=== PATIENT | male | born 1960 | race Caucasian/White ===

== ENCOUNTER → 2018-08-03 14:37 | Outpatient (CLI) | payer BC, SELFPAY ==
--- NOTE | 2018-08-03 14:52 | RAD_ITS ---
STUDY: X-RAY - LUMBAR SPINE REASON FOR EXAM: Male, 57 years old. Low back pain. TECHNIQUE: 3 view(s) of the lumbar spine were obtained. COMPARISON: None FINDINGS: Normal lumbar lordosis. There is no substantial scoliosis. There is a normal alignment of the vertebrae. Normal vertebral bodies and endplates. Normal disc space heights. There is no demonstrated fracture. The soft tissue structures are unremarkable. RAD/Lumbar Spine 2 or 3 Views IMPRESSION: Normal x-ray examination of the lumbar spine. Electronically Signed: Yong Michael MD at 23:47 EDT , Service support ,
== END ==
PROVIDERS: Referring Provider Anesthesiology Pain Medicine; Visit Provider Anesthesiology Pain Medicine
DX: M54.5 Low back pain (principal)
CPT/HCPCS: 72100

== ENCOUNTER 2021-06-08 12:13 | Outpatient (CLI) | payer BC, SELFPAY | END 2021-06-08 23:59 | disposition short-term general hospital (02) | LOC: EN 12:14 | PROVIDERS: Visit Provider Surgery | DX: Z00.00 Encounter for general adult medical examination without abnormal findings (principal) ==

== ENCOUNTER 2023-12-07 14:12 | Emergency (ER) | payer OTHER, SELFPAY ==
[2023-12-07 14:12] VITALS: BP 169/90; PULSE 92; RESP 22; TEMP 36.6; O2SAT 100
--- NOTE | 2023-12-07 14:47 | CT_ITS ---
STUDY: CT LUMBAR SPINE WITHOUT CONTRAST REASON FOR EXAM: Male, 62 years old. back pain TECHNIQUE: The patient was scanned in a multi detector CT scanner. High resolution transaxial imaging was performed. Images were obtained from T12 to S1. Sagittal and coronal images were reconstructed. Individualized dose optimization techniques were used for this CT. COMPARISON: None FINDINGS: Normal lumbar lordosis. There is no substantial scoliosis. Normal vertebrae of the lumbar spine. L1-2: There is bilateral facet arthropathy. Loss of intervertebral disc height. There is endplate spondylosis of the vertebral body. Unremarkable central canal. Unremarkable intervertebral neuroforamina. L2-3: There is bilateral facet arthropathy. Loss of intervertebral disc height. There is endplate spondylosis of the vertebral body. Unremarkable central canal. Unremarkable intervertebral neuroforamina. L3-4: There is bilateral facet arthropathy. Loss of intervertebral disc height. There is endplate spondylosis of the vertebral body. Unremarkable central canal. Unremarkable intervertebral neuroforamina. L4-5: There is bilateral facet arthropathy. Loss of intervertebral disc height. There is endplate spondylosis of the vertebral body. Unremarkable central canal. Unremarkable intervertebral neuroforamina. L5-S1: There is bilateral facet arthropathy. Loss of intervertebral disc height. There is endplate spondylosis of the vertebral body. Unremarkable central canal. Mild blurring of the bilateral intervertebral neuroforamina. Normal visualized paraspinous soft tissue structures. CT/Spine Lumbar without Contrast IMPRESSION: (NOT LISTED IN ORDER OF SIGNIFICANCE) Multilevel degenerative changes, as described above. Electronically Signed: Lior Contreras MD at 15:47 EDT ,
--- NOTE | 2023-12-07 14:49 | EDS_ITS ---
HPI <PEDRO PABLO Morelos - Last Filed: 12/07/23 16:15> History of Present Illness Chief Complaint: Back Narrative Narrative: Patient is 62-year-old male with no significant medical history who presents to the emergency department with acute on chronic back pain. Pay states he used to see pain management however this has been several years ago. Patient dates he has a very demanding job where he has to do a lot of heavy lifting. Last evening, he bent over to pick something up, had severe pain to his lower lumbar spine ended up laying on the ground. It took him several hours to get back up, he then laid back down. Today the pain was worse, he was able to call a neighbor to get him here to the emergency department. He denies any weakness to his lower extremities, he states the pain is staying in his lower back. He denies any radiation to his legs, denies any bowel or bladder incontinence, denies any fever or chills. Denies any history of IV drug abuse. PFSH <PEDRO PABLO Morelos - Last Filed: 12/07/23 16:15> [facility] Medical History (Updated 12/07/23 @ 16:12 by PEDRO PABLO Morelos) Wears glasses Alcohol use Marijuana use Arthritis Restless legs Back pain Gastric reflux Smoker History of pain when walking Home Medications ?Medication ?Instructions ?Recorded ?Last Taken ?Type omeprazole 20 mg capsule,delayed 40 mg PO DAILY 03/22/21 Unknown History release sucralfate 1 gram tablet (Carafate) 1 g PO 4X/DAY 03/22/21 Unknown History cyclobenzaprine 10 mg tablet 10 mg PO TID PRN Muscle Spasm #20 12/07/23 Unknown Rx TABLETS naproxen 500 mg tablet (Naprosyn) 500 mg PO BID PRN pain #20 tabs 12/07/23 Unknown Rx oxycodone-acetaminophen 5 mg-325 1 tab PO Q8H PRN pain 3 days #10 12/07/23 Unknown Rx mg tablet (Percocet) tabs Allergy/AdvReac Type Severity Reaction Status Date / Time No Known Allergies Allergy Verified 12/07/23 14:12 Surgical History (Updated 03/22/21 @ 14:34 by Tram Vargas) Hx of eye surgery Hx of hernia repair Social History Smoking Status: Current every day smoker tobacco type: cigarettes ROS <Joe PachecoNERY rader-C - Last Filed: 12/07/23 16:15> ROS ED ROS Narrative Constitutional: Negative for fever, chills, weight loss, weakness Eyes: Negative for vision loss, vision change, double vision ENT: Negative for any sore throat, ear pain, congestion Cardiovascular: Negative for any chest pain, tightness, palpitations Respiratory: Negative for any cough, sputum production, hemoptysis, dyspnea, dyspnea on exertion, orthopnea Gastrointestinal: Negative for any abdominal pain, nausea, vomiting, diarrhea, constipation, blood in stool, blood in vomit : Negative for any urinary frequency, dysuria, retention, blood in urine Muscle skeletal: Negative for any neck pain. Positive for lower back pain Neurological: Negative for any headache, syncope, dizziness Skin: Negative for any rashes, itching, abrasions, lacerations Psychiatric: Negative for any depression, anxiety, stress, suicidal ideation, homicidal ideation Hematologic: Negative for any excessive bruising, easy bleeding EXAM <PEDRO PABLO Morelos - Last Filed: 12/07/23 16:15> Physical Exam Narrative Exam Narrative: Vital signs reviewed. HEET: Head normocephalic atraumatic, TMs clear bilaterally. Posterior pharynx is clear, moist mucous membranes. Nares clear bilaterally. Neck: Supple with no lymphadenopathy or tenderness. No signs of meningismus. Cardiac: Regular rate and rhythm no murmurs gallops or rubs, equal peripheral pulses bilaterally. Respiratory: Lungs clear to auscultation bilaterally. No chest tenderness. Abdomen: Soft, nontender, nondistended. No abdominal bruit or pulsatile masses. No hepatosplenomegaly Extremities: No peripheral edema, no signs of gross trauma or deformity. Active full range of motion of all extremities. Equal strength bilateral lower extremities Neuro: Cranial nerves II through XII intact, no focal neurological deficits. Skin: Clean dry and intact with no rash, purpura, petechiae, vesicles or pustules. Backs/flank: No CVA tenderness, no midline spinal tenderness, no deformity. Patient has pain across his lower lumbar spine around L4-L5. No radiation. No significant midline spinal tenderness. Psych: Normal mood and affect. No SI, HI or acute psychosis. Const Vital Signs: 12/07/23 14:12 12/07/23 16:12 12/07/23 16:31 Temperature 97.8 F 98 F Temperature Source Temporal Pulse Rate 92 74 74 Respiratory Rate 22 H 18 18 Blood Pressure 169/90 H 155/76 H 155/76 H Blood Pressure Mean 116 102 102 Pulse Ox 100 96 96 Oxygen Delivery Method Room Air Room Air Positive well nourished and well developed General Appearance ED: well developed <Dr. John Rodrigez DO - Last Filed: 12/07/23 17:01> Physical Exam Const Vital Signs: 12/07/23 14:12 12/07/23 16:12 12/07/23 16:31 Temperature 97.8 F 98 F Temperature Source Temporal Pulse Rate 92 74 74 Respiratory Rate 22 H 18 18 Blood Pressure 169/90 H 155/76 H 155/76 H Blood Pressure Mean 116 102 102 Pulse Ox 100 96 96 Oxygen Delivery Method Room Air Room Air MDM <AKILAH MorelosC - Last Filed: 12/07/23 16:15> MDM Radiography Diagnostic Testing: Clinical Impression(s) from Imaging Studies Lumbar Spine CT 12/07/23 14:47 IMPRESSION: (NOT LISTED IN ORDER OF SIGNIFICANCE) Multilevel degenerative changes, as described above. Electronically Signed: Lior Contreras MD at 15:47 EDT , Treatment and Re-Evaluation :: Differential diagnosis includes however is not limited to: Cauda equina, spinal abscess, lumbar strain, compression fracture, acute on chronic back pain Patient appears to be in no obvious distress, vital signs are stable. Patient presents to the emergency department with complaints of pain to the lower back after bending to pick something up yesterday. Patient will receive CT scan of the lower lumbar spine, IV will be placed, patient be given IV morphine, Toradol, Zofran. Patient will be reevaluated. All radiologic examinations were read, reviewed by the emergency department attending. From these reads, a plan of care will be put in place. Reevaluation, the patient did feel better. Patient CT scan of lumbar spine shows multilevel degenerative changes, no acute process. Patient at this time will be discharged home. We given a work note for the next 3 to 4 days. Patient replaced on Percocet, Flexeril, naproxen. Instructed to return for any worsening symptoms. He will be given a referral to primary care as well as to orthospine. Instructed return for any worsening symptoms. Stable for discharge. <Dr. John Rodrigez, DO - Last Filed: 12/07/23 17:01> [facility] History & Record Review Discussion w/independent historian: Patient Radiography Diagnostic Testing: Clinical Impression(s) from Imaging Studies Lumbar Spine CT 12/07/23 14:47 IMPRESSION: (NOT LISTED IN ORDER OF SIGNIFICANCE) Multilevel degenerative changes, as described above. Electronically Signed: Lior Contreras MD at 15:47 EDT , Treatment and Re-Evaluation :: Differential diagnosis includes however is not limited to: Cauda equina, spinal abscess, lumbar strain, compression fracture, acute on chronic back pain Patient appears to be in no obvious distress, vital signs are stable. Patient presents to the emergency department with complaints of pain to the lower back after bending to pick something up yesterday. Patient will receive CT scan of the lower lumbar spine, IV will be placed, patient be given IV morphine, Toradol, Zofran. Patient will be reevaluated. All radiologic examinations were read, reviewed by the emergency department attending. From these reads, a plan of care will be put in place. Reevaluation, the patient did feel better. Patient CT scan of lumbar spine shows multilevel degenerative changes, no acute process. Patient at this time will be discharged home. We given a work note for the next 3 to 4 days. Melba ient replaced on Percocet, Flexeril, naproxen. Instructed to return for any worsening symptoms. He will be given a referral to primary care as well as to orthospine. Instructed return for any worsening symptoms. Stable for discharge. I have personally performed a face to face assessment of the patient and have reviewed the MANAS Note. I performed a substantive portion of the visit including all aspects of the following. My ospina findings include: History is 62-year-old male with a history of intermittent back problems. States he used to be in pain management with Dr. Neal. He states that last night he bent over to pick something up and when he started to come back up got a severe pain in the low back. Did not radiate into the legs. He states it felt like a tightening sensation. He notes no difficulty with bowel or bladder control. No fevers. No numbness of the legs or muscle weakness. He states he has had episodes like this in the past that have taken upwards of a week to carlitos fitzpatrick. Exam is mild tenderness to palpation just to the right of the lumbar paraspinal musculature around L4-L5. There is no SI joint tenderness. No rashes. Neurovascularly he is intact. He gets pain on the right side when I try to flex his right hip. Medical Decison Making CT scan that was ordered by this practitioner was reviewed. Mild degenerative changes please see radiologist read. Patient was treated with morphine Zofran and Toradol. I believe this to be muscular spasm in nature. Unguinal recommend primary follow-up unfortunately does not have 1 so may be difficult to get early follow-up. We can write for some pain and muscle relaxant medications. Discharge Plan Triage Chief Complaint: Back ED Midlevel Provider: Joe Nevarez ED Provider: John Rodrigez Dx/Rx/DC Orders Clinical Impression: Acute lumbar myofascial strain Instructions: Understanding Lumbosacral Strain Prescriptions: New oxycodone-acetaminophen [Percocet] 5-325 mg tablet 1 tab PO Q8H PRN (Reason: pain) 3 Days Qty: 10 0RF naproxen [Naprosyn] 500 mg tablet 500 mg PO BID PRN (Reason: pain) Qty: 20 0RF cyclobenzaprine 10 mg tablet 10 mg PO TID PRN (Reason: Muscle Spasm) Qty: 20 0RF No Action sucralfate [Carafate] 1 gram Tablet 1 g PO 4X/DAY omeprazole 20 mg Capsule,Delayed Release(Dr/Ec) 40 mg PO DAILY Stand Alone Forms: ED Work / School Excuse Primary Care Provider: Care Physician,No Primary Referrals: Syed Mon DO [Med Staff - Active Staff] - Reuben Loving MD [Med Staff - Hydrometer Calibrator] - Care Physician,No Primary [Primary Care Provider] - Activity Restrictions/Additional Instructions: Please follow-up outpatient. Print Language: Citizen Of [place] Disposition Disposition: Home, Self Care Discharge Date/Time: 12/07/23 16:33
[2023-12-07] MEDS: Morphine 4 MG/ML Syringe IV (14:56)
[2023-12-07] MEDS: Ketorolac 15 MG/ML Vial IV (14:56)
[2023-12-07] MEDS: Ondansetron 4 MG/2 ML Vial IV (14:57)
[2023-12-07 16:12] VITALS: BP 155/76; PULSE 74; RESP 18; O2SAT 96
[2023-12-07 16:31] VITALS: BP 155/76; PULSE 74; RESP 18; TEMP 36.6; O2SAT 96
== END 2023-12-07 16:33 | disposition home or self-care (01) ==
PROVIDERS: Emergency Provider Emergency Medicine; Visit Provider Emergency Medicine
DX: S39.012A Strain of muscle, fascia and tendon of lower back, initial encounter (principal); F17.210 Nicotine dependence, cigarettes, uncomplicated; K21.9 Gastro-esophageal reflux disease without esophagitis; X50.0XXA Overexertion from strenuous movement or load, initial encounter
CPT/HCPCS: 72131; 96374; 96375; 99282; J7030; A4216; J2405

== ENCOUNTER → 2024-01-07 | Outpatient (CLI) | payer OTHER, SELFPAY ==
[2024-01-07 13:45] LABS: ALB/GLOB Ratio 1.1 RATIO (0.9-2.4); AST(SGOT) 13 U/L (15-37); Alanine Aminotransfer ALT/SGPT 35 U/L (16-61); Albumin, Serum 3.8 g/dL (3.2-5.0); Alkaline Phosphatase 96 U/L (45-117); Anion Gap 6 (5-15); BUN 11 mg/dL (7-18); BUN/Creat Ratio 11.6 RATIO (10-20); Calcium,Total 9.6 mg/dL (8.5-10.1); Chloride 107 mmol/L (98-107); Creatinine, Serum 0.95 mg/dL (0.70-1.30); EST Glomerular Filtration Rate 86 mL/min (>60); Est Glom Filt Rate - Afr Amer 103 mL/min (>60); Globulin 3.5 g/dL (2.2-4.2); Glucose 114 mg/dL (74-106); PSA,Total- Diagnostic 2.79 ng/mL (0.0-4.0); Potassium 4.4 mmol/L (3.5-5.1); Protein, Total 7.3 g/dL (6.4-8.2); Sodium Level 136 mmol/L (136-145)
== END | disposition home or self-care (01) ==
LOC: VSLAB 10:28
PROVIDERS: PCP Family Medicine; Visit Provider Family Medicine
DX: E87.5 Hyperkalemia (principal); N40.0 Benign prostatic hyperplasia without lower urinary tract symptoms
CPT/HCPCS: 36415; 80053; 84153

== ENCOUNTER 2024-04-05 15:58 | Emergency (ER) | payer OTHER, SELFPAY ==
[2024-04-05 15:59] VITALS: BP 178/108; PULSE 89; RESP 16; TEMP 35.9; O2SAT 99; BMI 23.6
--- NOTE | 2024-04-05 16:15 | ED.RN ---
Joe PLATE MILL HAND bedside with doppler to check pedal pulses
--- NOTE | 2024-04-05 16:25 | ART_ITS ---
Reason For Study: LLE Pain Procedure A bilateral lower extremity continuous wave Doppler with analog waveform analysis and ankle brachial indexes. Left Segmental Pressures Left posterior tibial artery = 98mmHg. Left dorsalis pedis artery = 103mmHg. Left digit = 84 mmHg. Right Segmental Pressures Right brachial= 164mmHg. Right posterior tibial artery = 173mmHg. Right dorsalis pedis artery = 168mmHg. Right digit = 85 mmHg. Indices The right ankle brachial index by the posterior tibial artery is 1.05. The right ankle brachial index by the dorsalis pedis is 1.02. The right digital-brachial index is 0.52. The left ankle brachial index by the posterior tibial artery is 0.60. The left ankle brachial index by the dorsalis pedis is 0.63. The left digital-brachial index is 0.51. VL/Ankle Brachial Index Interpretation Summary Right HARIS 1.05, normal. Doppler/PVR waveforms of the right ankle normal at rest . 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 Left HARIS 0.63, moderate arterial insufficiency. Doppler/PVR waveforms of the le ft ankle moderately diminished at rest. Ordering Physician: Joe Nevarez Referring Physician: Tawny Hernandez Performed By: Julee Marie RDCS/RVT
--- NOTE | 2024-04-05 16:25 | RAD_ITS ---
STUDY: X-RAY - LEFT FOOT CLINICAL: Male, 63 years old. foot pain TECHNIQUE: 3 view(s) of the foot. COMPARISON: None. FINDINGS: Normal talus, calcaneus, and tarsal bones. Normal visualized subtalar, talonavicular, calcaneocuboid, tarsal and tarsometatarsal articulations. Normal metatarsi. Normal metatarsophalangeal joint of the great toe. Normal tibial and fibular sesamoid bones. Normal interphalangeal joint of the great toe. Normal phalanges of the great toe. Normal second through fifth metatarsophalangeal joints. Normal interphalangeal joints and phalanges of the lesser toes. The soft tissue structures are unremarkable. RAD/Foot min 3 Views IMPRESSION: Normal x-ray examination of the foot. Electronically Signed: Syed Christian MD at 17:04 EST Reading Location ID and State: [facility] / [place] Tel , Service support ,
--- NOTE | 2024-04-05 16:25 | CT_ITS ---
STUDY: CTA OF THE ABDOMINAL AORTA AND BILATERAL LOWER EXTREMITIES REASON FOR EXAM: Male, 63 years old. legt pain/color change RADIATION DOSAGE (If Supplied By Facility): CTDIvol = ( 6.38 ) mGy, DLP = ( 1592.40 ) mGycm TECHNIQUE: Axial CT angiography multi-detector data acquisition was obtained from the to the following intravenous administration of IV 100mL Isovue-370. Axial images and MIP images were reconstructed from the axial data set. Post-processing of the angiographic images was performed, with multiplanar reformation and 3D reconstruction. Individualized dose optimization techniques were used for this CT. TECHNICAL QUALITY: Good COMPARISON: None. FINDINGS: Abdominal aorta: Multifocal soft and calcific plaquing without significant stenosis or aneurysm formation. Celiac and superior mesenteric arteries: No demonstrated narrowing. Inferior mesenteric artery: No demonstrated narrowing. Right renal artery(arteries): No demonstrated narrowing. Left renal artery(arteries): No demonstrated narrowing. Right common iliac artery: Mild calcific and soft plaque. Right external iliac artery: No demonstrated narrowing. Right internal iliac artery: No demonstrated narrowing. Left common iliac artery: Mild soft and calcific plaque Left external iliac artery: No demonstrated narrowing. Left internal iliac artery: No demonstrated narrowing. RIGHT LOWER EXTREMITY Right common femoral artery: No demonstrated narrowing. Right profundus femoris: No demonstrated narrowing. Right superficial femoral: No demonstrated narrowing. Right popliteal artery: No demonstrated narrowing. Right tibioperoneal trunk: No demonstrated narrowing. Right anterior tibial artery: Occluded proximally Right posterior tibial artery: Occluded proximally Right peroneal artery: Occluded proximally. LEFT LOWER EXTREMITY Left common femoral artery: No demonstrated narrowing. Left profundus femoris: No demonstrated narrowing. Left superficial femoral: Occluded distal superficial femoral artery. Left popliteal artery: Occluded. Left tibioperoneal trunk: Reconstituted. Left anterior tibial artery: Occluded proximally Left posterior tibial artery: Occluded proximally Left peroneal artery: Occluded proximally. CT/CTA Abd w/Runoff W/WO Contrast IMPRESSION: Severe atherosclerotic changes worse on the left. Occlusion of the distal left superficial femoral and popliteal arteries with reconstituted left tibioperoneal trunk and proximal occlusion of the calf vessels. Occlusion of the calf vessels of the right calf Electronically Signed: Syed Christian MD at 19:22 EST ,
--- NOTE | 2024-04-05 16:28 | EDS_ITS ---
HPI <PEDRO PABLO Morelos - Last Filed: 04/05/24 19:56> History of Present Illness Chief Complaint: Lower Extremity Injury Narrative Narrative: Patient is a 63-year-old male with history of tobacco use, chronic back pain who presents to the [facility] part with left foot pain that is been ongoing for the last 1.5 weeks. Patient patient noted some color change to his toes on his left foot, went and saw his PCP referred him to the emergency department. Patient s tates he feels a more of a muscle pain like feeling, he denies any trauma to this foot or leg. Pay states he feels pain in his calf that feels like he has been using his muscles quite a bit. Patient denies any history of any DVT or PE. Denies any fever or chills. [facility] <PEDRO PABLO Morelos - Last Filed: 04/05/24 19:56> [facility] Medical History (Updated 04/05/24 @ 22:[address] Fadi Summers MD) Wears glasses Alcohol use Marijuana use Arthritis Restless legs Back pain Gastric reflux Smoker History of pain when walking Home Medications ?Medication ?Instructions ?Recorded ?Last Taken ?Type cyclobenzaprine 10 mg tablet 10 mg PO TID PRN Muscle Spasm #20 12/07/23 Unknown Rx TABLETS aspirin 81 mg capsule 81 mg PO DAILY #30 caps 04/05/24 Unknown Rx atorvastatin 40 mg tablet (Lipitor) 40 mg PO DAILY #30 tabs 04/05/24 Unknown Rx gabapentin 300 mg capsule 300 - 600 mg PO TID 04/05/24 Unknown History Allergy/AdvReac Type Severity Reaction Status Date / Time No Known Allergies Allergy Verified 04/05/24 15:59 Surgical History (Updated 03/22/21 @ 14:34 by Tram Vargas) Hx of eye surgery Hx of hernia repair Social History Smoking Status: Current every day smoker tobacco type: cigarettes ROS <PEDRO PABLO Morelos - Last Filed: 04/05/24 19:56> ROS ED ROS Narrative Constitutional: Negative for fever, chills, weight loss, weakness Eyes: Negative for vision loss, vision change, double vision ENT: Negative for any sore throat, ear pain, congestion Cardiovascular: Negative for any chest pain, tightness, palpitations Respiratory: Negative for any cough, sputum production, hemoptysis, dyspnea, dyspnea on exertion, orthopnea Gastrointestinal: Negative for any abdominal pain, nausea, vomiting, diarrhea, constipation, blood in stool, blood in vomit : Negative for any urinary frequency, dysuria, retention, blood in urine Muscle skeletal: Negative for any neck pain, back pain. Positive for left leg pain, left leg color change Neurological: Negative for any headache, syncope, dizziness Skin: Negative for any rashes, itching, abrasions, lacerations. Positive for pain to the left foot, left leg Psychiatric: Negative for any depression, anxiety, stress, suicidal ideation, homicidal ideation Hematologic: Negative for any excessive bruising, easy bleeding EXAM <Joe Nevarez NP-Magda - Last Filed: 04/05/24 19:56> Physical Exam Narrative Exam Narrative: Vital signs reviewed. HEET: Head normocephalic atraumatic, TMs clear bilaterally. Posterior pharynx is clear, moist mucous membranes. Nares clear bilaterally. Neck: Supple with no lymphadenopathy or tenderness. No signs of meningismus. Cardiac: Regular rate and rhythm no murmurs gallops or rubs, equal peripheral pulses bilaterally. Respiratory: Lungs clear to auscultation bilaterally. No chest tenderness. Abdomen: Soft, nontender, nondistended. No abdominal bruit or pulsatile masses. No hepatosplenomegaly Extremities: Patient's left lower extremity is slightly more cool than the right. Patient does have some color change with some ecchymotic changes to the distal right first and second toe as well as the fifth toe. I was able to use the Doppler, posterior tibial pulses easily found. Difficult finding the pedal to the left and right leg. However was able he will faint pulse to the left with Doppler. Patient does have pain on palpation. The left foot is cooler than the right. Neuro: Cranial nerves II through XII intact, no focal neurological deficits. Skin: Clean dry and intact with no rash, purpura, petechiae, vesicles or pustules. Backs/flank: No CVA tenderness, no midline spinal tenderness, no deformity. Psych: Normal mood and affect. No SI, HI or acute psychosis. Const Vital Signs: 04/05/24 15:59 04/05/24 19:57 04/05/24 20:01 Temperature 96.7 F L 98.5 F Temperature Source Temporal Pulse Rate 89 63 63 Respiratory Rate 16 18 18 Blood Pressure 178/108 H 161/108 H 161/108 H Blood Pressure Mean 131 125 125 Pulse Ox 99 98 98 Oxygen Delivery Method Room Air Room Air Positive well nourished and well developed General Appearance ED: well developed <Dr. Fadi Summers MD - Last Filed: 04/05/24 22:09> Physical Exam Const Vital Signs: 04/05/24 15:59 04/05/24 19:57 04/05/24 20:01 Temperature 96.7 F L 98.5 F Temperature Source Temporal Pulse Rate 89 63 63 Respiratory Rate 16 18 18 Blood Pressure 178/108 H 161/108 H 161/108 H Blood Pressure Mean 131 125 125 Pulse Ox 99 98 98 Oxygen Delivery Method Room Air Room Air MDM <PEDRO PABLO Morelos - Last Filed: 04/05/24 19:56> MDM Lab Data Labs: Laboratory Results - last 24 hr 04/05/24 16:36 WBC 6.7 RBC 4.86 Hgb 16.3 Hct 46.7 MCV 96.1 H MCH 33.5 H MCHC 34.9 RDW Std Deviation 45.6 H RDW Coeff of Marcia 12.8 Plt Count 272 MPV 10.3 Immature Gran % (Auto) 0.300 Neut % (Auto) 72.2 H Lymph % (Auto) 17.5 L Oxford % (Auto) 7.6 Eos % (Auto) 1.8 Baso % (Auto) 0.6 Absolute Neuts (auto) 4.9 Absolute Lymphs (auto) 1.18 Nucleated RBC % 0 PT 12.9 INR 1.0 Sodium 136 Potassium 3.5 Chloride 107 Carbon Dioxide 23.0 Anion Gap 6 BUN 15 Creatinine 0.95 Estim Creat Clear Calc 91.11 Est GFR (MDRD) Af Amer 104 Est GFR (MDRD) Non-Af 86 BUN/Creatinine Ratio 15.9 Glucose 114 H Lactic Acid 1.3 Calcium 9.5 Total Bilirubin 0.60 AST 8 L ALT 27 Alkaline Phosphatase 89 Total Creatine Kinase 64 Total Protein 7.4 Albumin 3.8 Globulin 3.6 Albumin/Globulin Ratio 1.1 Radiography Diagnostic Testing: Clinical Impression(s) from Imaging Studies Abdomen/Pelvis CTA 04/05/24 16:25 IMPRESSION: Severe atherosclerotic changes worse on the left. Occlusion of the distal left superficial femoral and popliteal arteries with reconstituted left tibioperoneal trunk and proximal occlusion of the calf vessels. Occlusion of the calf vessels of the right calf Electronically Signed: Syed Christian MD at 19:22 EST , Foot X-Ray 04/05/24 16:25 IMPRESSION: Normal x-ray examination of the foot. Electronically Signed: Syed Christian MD at 17:04 EST , Treatment and Re-Evaluation :: Differential diagnosis includes however is not limited to: Vascular compromise of the right distal leg, DVT, traumatic injury, intermittent claudication Patient appears generally well, vital signs are stable, patient is nontoxic- appearing. Presenting to the emergency department with left leg pain, left foot pain is been ongoing for the last 1.5 weeks. Patient will receive basic laboratory values including a lactic acid, PT/INR as well as a CPK. X-ray of the left foot will be ensure there is no traumatic injury. Patient will receive HARIS as well as CTA of the abdomen and pelvis with runoffs to the lower extremities. All radiologic examinations were read, reviewed by the emergency department attending. From these reads, a plan of care will be put in place. Patient's laboratory values showed a normal CBC, PT/INR within normal limits, chemistries were unremarkable. Patient did have a faint pedal pulse, patient's HARIS was 0.67, this is a regular. However patient did have some blood flow to the distal tip of the great toe. We did reach out to Dr. Oconnor about the patient. Patient will be placed on baby aspirin, atorvastatin 40 mg daily. Patient will get called by the office tomorrow for follow-up. Patient is agreeable. Patient did receive a CTA of the abdomen pelvis with runoffs, this showed severe arthrosclerotic changes worse on the left. Occlusion of the distal left superficial femoral and popliteal arteries with constituted left tibioperoneal trunk and proximal occlusion of the calf vessels. Occlusion of the calf vessels on the right calf. Secondary to this finding, patient will be placed on the medications, he will be discharged home. He will follow-up this week with vascular surgery. He is happy the plan of care, was given return precautions. <Dr. Fadi Summers MD - Last Filed: 04/05/24 22:09> [facility] Narrative Medical decision making narrative: I have personally performed a face to face assessment of the patient and have reviewed the MANAS Note. I performed a substantive portion of the visit including all aspects of the following. My ospina findings include: History is claudication left lower leg and cool discolored toes for more than 2 weeks. Seen at [facility] today and sent to the ER out of concern that they were not able to find pulses in the left lower extremity foot. Patient denies any chest pain, dyspnea, he states he has claudication only with walking 15 or 20 feet and has to rest. He has approximately [id number] smoking history or more. Exam is cool left foot with a couple of cyanotic toes, no necrotic tissue, no tenderness. All compartments of the lower extremities are soft and nondistended, and nontender. Not able to palpate pulses in the left foot but they are dopplerable, easier to feel than on the right. Neurologically intact throughout all 4 extremities. Medical Decison Making ABIs and CTA with runoffs obtained. Discussed with auto repair technician who did the ABIs, they vary anywhere from 0.51 in the digits to 0.63 in the ankle. discussed with vascular, will treat as an outpatient start on aspirin and atorvastatin see below. Other additions or changes: [None] Lab Data Attestation: I reviewed the patient's lab results. Labs: Laboratory Results - last 24 hr 04/05/24 16:36 WBC 6.7 RBC 4.86 Hgb 16.3 Hct 46.7 MCV 96.1 H MCH 33.5 H MCHC 34.9 RDW Std Deviation 45.6 H RDW Coeff of Marcia 12.8 Plt Count 272 MPV 10.3 Immature Gran % (Auto) 0.300 Neut % (Auto) 72.2 H Lymph % (Auto) 17.5 L Oxford % (Auto) 7.6 Eos % (Auto) 1.8 Baso % (Auto) 0.6 Absolute Neuts (auto) 4.9 Absolute Lymphs (auto) 1.18 Nucleated RBC % 0 PT 12.9 INR 1.0 Sodium 136 Potassium 3.5 Chloride 107 Carbon Dioxide 23.0 Anion Gap 6 BUN 15 Creatinine 0.95 Estim Creat Clear Calc 91.11 Est GFR (MDRD) Af Amer 104 Est GFR (MDRD) Non-Af 86 BUN/Creatinine Ratio 15.9 Glucose 114 H Lactic Acid 1.3 Calcium 9.5 Total Bilirubin 0.60 AST 8 L ALT 27 Alkaline Phosphatase 89 Total Creatine Kinase 64 Total Protein 7.4 Albumin 3.8 Globulin 3.6 Albumin/Globulin Ratio 1.1 Radiography Diagnostic Testing: Clinical Impression(s) from Imaging Studies Abdomen/Pelvis CTA 04/05/24 16:25 IMPRESSION: Severe atherosclerotic changes worse on the left. Occlusion of the distal left superficial femoral and popliteal arteries with reconstituted left tibioperoneal trunk and proximal occlusion of the calf vessels. Occlusion of the calf vessels of the right calf Electronically Signed: Syed Christian MD at 19:22 EST , Foot X-Ray 04/05/24 16:25 IMPRESSION: Normal x-ray examination of the foot. Electronically Signed: Syed Christian MD at 17:04 EST , Three-view x-ray series of the left foot on my interpretation negative for anything acute. CTA lower extremity/abdomen/pelvis with runoffs imaging I reviewed as well as results which I agree with. Management Discussion w/another healthcare provider: [facility] (Vascular rita) Discharge Plan Triage Chief Complaint: Lower Extremity Injury ED Midlevel Provider: Joe Nevarez ED Provider: Fadi Summers Dx/Rx/DC Orders Clinical Impression: Atherosclerotic occlusive disease, Claudication, intermittent, Episode of hypertension Instructions: Quitting Smoking, Low-Salt Choices, PAD, ED Heart Disease Risk Factors Prescriptions: New atorvastatin [Lipitor] 40 mg tablet 40 mg PO DAILY Qty: 30 2RF aspirin 81 mg capsule 81 mg PO DAILY Qty: 30 2RF No Action cyclobenzaprine 10 mg tablet 10 mg PO TID PRN (Reason: Muscle Spasm) Qty: 20 0RF gabapentin 300 mg capsule 300 - 600 mg PO TID Stand Alone Forms: ED Work / School Excuse Primary Care Provider: Tawny Hernandez Referrals: Zachariah Oconnor MD [Med Staff - Active Staff] - Tawny Hernandez, DO [Primary Care Provider] - Activity Restrictions/Additional Instructions: You need to follow-up with vascular surgery. If you do not receive a call by 1 or 2 PM tomorrow, you call them. Take the antibiotics as prescribed. Print Language: Polish Disposition Disposition: Home, Self Care Discharge Date/Time: 04/05/24 20:26
[2024-04-05 16:46] LABS: Absolute Lymphocyte Count 1.18 X10^3/uL (0.83-4.51); Absolute Neutrophil Count 4.9 X10^3/uL (2.0-7.7); Basophil# 0.04 X10^3/uL; Basophil% 0.6 % (0-1); Eosinophil# 0.12 X10^3/uL; Eosinophils% 1.8 % (0-5); Hematocrit 46.7 % (40-54); Hemoglobin 16.3 g/dL (13.0-16.5); Lymphocyte # 1.18 X10^3/ul (0.83-4.51); Lymphocyte % 17.5 % (19-41); Mean Corp Hgb Conc 34.9 g/dL (32-36); Mean Corpuscular Hgb 33.5 pg (27.0-32.0); Mean Corpuscular Volume 96.1 fL (80-94); Mean Platelet Vol. 10.3 fl (6.2-12.0); Monocyte# 0.51 X10^3/uL; Monocyte% 7.6 % (0-10); NRBC Flagged by Analyzer 0 % (0-5); Neutrophil # 4.86 X10^3/uL (2.7-7.7); Neutrophil % 72.2 % (47-70); Platelet Count 272 K/mm3 (150-450); RBC Distribution Width CV 12.8 % (11.6-14.6); RBC Distribution Width SD 45.6 fl (35.1-43.9); Red Blood Count 4.86 M/mm3 (4.6-6.2); White Blood Count 6.7 K/mm3 (4.4-11.0)
[2024-04-05 16:57] LABS: Prothrombin Time (Protime)PT. 12.9 SECONDS (11.7-14.9)
[2024-04-05 17:20] LABS: ALB/GLOB Ratio 1.1 RATIO (0.9-2.4); AST(SGOT) 8 U/L (15-37); Alanine Aminotransfer ALT/SGPT 27 U/L (16-61); Albumin, Serum 3.8 g/dL (3.2-5.0); Alkaline Phosphatase 89 U/L (45-117); Anion Gap 6 (5-15); BUN 15 mg/dL (7-18); BUN/Creat Ratio 15.9 RATIO (10-20); Calcium,Total 9.5 mg/dL (8.5-10.1); Chloride 107 mmol/L (98-107); Creatinine, Serum 0.95 mg/dL (0.70-1.30); EST Glomerular Filtration Rate 86 mL/min (>60); Est Glom Filt Rate - Afr Amer 104 mL/min (>60); Estimated Creatinine Clearance 91.11 ml/min; Globulin 3.6 g/dL (2.2-4.2); Glucose 114 mg/dL (74-106); Potassium 3.5 mmol/L (3.5-5.1); Protein, Total 7.4 g/dL (6.4-8.2); Sodium Level 136 mmol/L (136-145)
[2024-04-05 17:21] LABS: Lactic Acid 1.3 mmol/L (0.4-1.9)
[2024-04-05 17:28] LABS: CPK Total, Creatine Kinase 64 U/L (39-308)
[2024-04-05] MEDS: Aspirin 81 MG TAB.CHEW 324 MG PO (18:48)
[2024-04-05 19:57] VITALS: BP 161/108; PULSE 63; RESP 18; O2SAT 98
[2024-04-05 20:01] VITALS: BP 161/108; PULSE 63; RESP 18; TEMP 36.9; O2SAT 98
[2024-04-05] MEDS: Atorvastatin Calcium 40 MG Tablet PO ×2 (20:25)
== END 2024-04-05 20:26 | disposition home or self-care (01) ==
PROVIDERS: Nurse Practitioner; Emergency Provider Emergency Medicine; PCP Family Medicine; Visit Provider Emergency Medicine
DX: I70.90 Unspecified atherosclerosis (principal); I73.9 Peripheral vascular disease, unspecified; I10 Essential (primary) hypertension; F17.210 Nicotine dependence, cigarettes, uncomplicated; M79.672 Pain in left foot; K21.9 Gastro-esophageal reflux disease without esophagitis; Z79.82 Long term (current) use of aspirin
CPT/HCPCS: 73630; 75635; 80053; 82550; 83605; 85025; 85610; 93922; 99284; Q9967; A4216

== ENCOUNTER 2024-04-29 06:42 | Day surgery (SDC) | payer OTHER, SELFPAY ==
[2024-04-28 08:55] VITALS: BMI 23.6
[2024-04-29 06:58] LABS: Hematocrit 44.5 % (40-54); Hemoglobin 15.4 g/dL (13.0-16.5); Mean Corp Hgb Conc 34.6 g/dL (32-36); Mean Corpuscular Hgb 33.8 pg (27.0-32.0); Mean Corpuscular Volume 97.8 fL (80-94); Mean Platelet Vol. 10.5 fl (6.2-12.0); Platelet Count 278 K/mm3 (150-450); RBC Distribution Width CV 12.9 % (11.6-14.6); RBC Distribution Width SD 46.3 fl (35.1-43.9); Red Blood Count 4.55 M/mm3 (4.6-6.2)
[2024-04-29 15:18] LABS: ACT Activated Clotting Time 222 sec (74-137)
[2024-04-29 15:18] LABS: ACT Activated Clotting Time 250 sec (74-137)
--- NOTE | 2024-04-29 17:37 | PCM.OPRPT ---
Operative Report (Standard) Operative Information Date of Procedure: 04/29/24 Pre-Operative Diagnosis: Atherosclerosis with rest pain of the left lower extremity Post-Operative Diagnosis: Same Surgery/Procedure Performed: Aortogram, left lower extremity runoff Intravascular ultrasound left tibioperoneal trunk, SFA/popliteal arteries Atherectomy and angioplasty left popliteal artery Atherectomy and angioplasty left tibioperoneal trunk artery lab instructor: No Type of Anesthesia: Local and Sedation,Conscious Procedure Start Time: 08:30 Procedure Stop Time: 10:30 Select all DRAINS/GRAFTS/IMPLANTS that apply: None Estimated Blood Loss: 8 Specimen collected: No Description of surgery: HPI: Patient is a 63-year-old male who had abrupt onset of left lower extremity short distance claudication and forefoot pain and discoloration. He had a CT scan which revealed distal popliteal occlusion with reconstitution of the tibioperoneal trunk and anterior tibial artery. 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 He presents now for angiogram possible intervention. Description of procedure: Upon obtaining form consent and verification correct patient procedure site patient was taken to the [facility] where he was positioned prepped draped in usual sterile fashion. Time was performed consultation administered Versed and fentanyl. Skin overlying the right common femoral artery was anesthetized 1% lidocaine the vessel accessed under ultrasound guidance with a micropuncture needle wire. This was exchanged for sheath routine injection iliofemoral angiograms revealing satisfactory position with no extravasation or dissection. Through the micropuncture sheath Bentson wire was advanced and the micropuncture sheath exchanged for short 6 Jamaican sheath. The 6 Jamaican sheath and Omni Flush catheter was advanced and a digital subtraction aortogram pelvic angiogram was performed. We then navigated into the contralateral iliac artery with the Omni Flush and Bentson wire advancing our catheter into the distal external iliac artery. From this position digital subtraction angiogram sequential imaging of the left lower extremity was performed which revealed continued distal popliteal occlusion with reconstitution of the tibioperoneal trunk and anterior tibial arteries. A glide advantage wire was then advanced through the catheter and positioned in the distal SFA. The catheter was then withdrawn and a short 6 Jamaican sheath exchanged for a long 6 Jamaican sheath which was advanced in the position in the distal superficial femoral artery. The patient was in heparinized allowed to circulate for 3 minutes. Utilizing a command 18 wire and an angled quick cross catheter we engaged the proximal cap of the occlusion and were able to easily advance the wire and catheter through the occlusion and to the distal vessel and what appeared to be the tibioperoneal trunk. The wire was then withdrawn and subtraction angiography performed with a catheter in the tibioperoneal trunk which confirmed position within true lumen with no extravasation or dissection. The wire was then readvanced and the catheter exchanged for an intravascular ultrasound catheter which was advanced into the distal vessel and a quart of pullback performed of the tibioperoneal trunk artery, popliteal artery, superficial femoral artery. This confirmed presence within true lumen and revealed total occlusion of mixed morphology appearing to have both acute and subacute thrombus as well as fixed plaque. It was felt that this was appropriate for Rota Ephraim combined atherectomy thrombectomy device. Given the appearance we felt that there was high risk for embolization in the distal embolic protection would be warranted. The intravascular Gorman probe was then withdrawn and the quick cross catheter advanced into the tibioperoneal trunk artery. Command wire was exchanged for the [employer] bare filter wire that was positioned in the distal tibioperoneal trunk. An [employer] Mueller 6 was then brought in field prep for manufactures instructions. Was then advanced over the wire and positioned in the mid tibioperoneal trunk artery. The Bard Rota Ephraim was then brought in the field prep manufactures instructions. It was then advanced over the wire and positioned cephalad to the occlusion. This was then engaged and advanced slowly through the proximal extent of the lesion stopping short of the distal end cap. It was then pulled back to the proximal extent of the lesion and then reengaged across the entirety of the length of the lesion into the proximal tibioperoneal trunk. The device was then pulled back into the proximal patent vessel and repeat angiography performed which revealed significant improvement in lumen with no evidence of extravasation, dissection, fistula and no evidence of embolization. It did reveal that there was continued area of either thrombus or thick stenosis so the device was then readvanced and engaged at the areas of focal stenosis. The device was then withdrawn and repeat angiography showed similar appearance with some improvement in the areas of stenosis. The intravascular ultrasound probe was then readvanced and recorded pullback performed of the treatment area. This revealed resolution of the acute thrombus appearing material and improvement in the areas of fixed stenosis though there was still some residual stenosis. A [employer] angio sculpt 6 mm x 100 was advanced to just above the anterior tibial artery origin and inflated to nominal for 2 inflations and then deflated withdrawn. Repeat angiography revealed satisfactory vessel response with no residual stenosis, no extravasation of dissection, no distal embolization. Next a [employer] 6 x 100 was advanced to just above the anterior tibial artery origin and inflated to nominal for 3 minutes and deflated withdrawn. Next the command wire was readvanced and a francesca wire configuration into the anterior tibial artery origin was obtained. A viet 4 x 40 angioplasty was advanced in position in the proximal 1 cm of the tibioperoneal trunk artery and then inflated to nominal for 3 minutes and deflated withdrawn. Repeat imaging revealed satisfactory lesion response. A 4 mm x 40 [employer] angioplasty balloon was advanced in position and inflated nominal for 3 minutes and deflated withdrawn. Completion angiography revealed satisfactory resolution of the lesions in the popliteal and tibioperoneal trunk arteries with brisk contrast transit particularly of the tibioperoneal trunk artery. Anterior tibial artery filled though was less brisk contrast transit and given its patency we felt that this was not appropriate to proceed. Wires and catheters then withdrawn and the long 6 Jamaican sheath exchanged for a short 6 Jamaican sheath. Mynx closure device was then deployed followed by 2 minutes minute pressure with satisfactory stasis noted. Patient was then taken recovery area bedrest with plan discharged to home. Surgical Findings: See above Complications Complications: No
== END 2024-04-29 14:20 | disposition home or self-care (01) ==
PROVIDERS: PCP Family Medicine; Referring Provider Surgery Trauma Surgery; Visit Provider Surgery Trauma Surgery
DX: I70.212 Atherosclerosis of native arteries of extremities with intermittent claudication, left leg (principal); I75.022 Atheroembolism of left lower extremity; Z79.01 Long term (current) use of anticoagulants; Z79.82 Long term (current) use of aspirin; Z79.899 Other long term (current) drug therapy; K21.9 Gastro-esophageal reflux disease without esophagitis; G25.81 Restless legs syndrome; F17.200 Nicotine dependence, unspecified, uncomplicated
CPT/HCPCS: 36200; 36245; 36415; 37225; 37229; 37252; 37253; 75625; 75710; 76937; 85027; 85347; 99152; 99153; C1724; C1725; C1753; C1760; C1769; C1884; C1887; C1894; C2623; Q9967

== ENCOUNTER → 2024-06-03 | Outpatient (CLI) | payer OTHER, SELFPAY ==
--- NOTE | 2024-06-03 08:55 | ADUL_ITS ---
Reason For Study: S/P Lt POP A Angio Left Velocities Ext Iliac Artery, dist = 117.6 cm./sec. Common Femoral Artery, mid = 74.9 cm./sec. Supf. Femoral Artery, prox = 96.4 cm./sec. Supf. Femoral Artery, mid = 106.8 cm./sec. Supf. Femoral Artery, dist = 99.0 cm./sec. Profunda Femoral Artery = 85.3 cm./sec. Popliteal Artery, mid = 48.1 cm./sec. Popliteal Artery, distal = 69.0 cm./sec. Post. Tibial Artery, prox = 71.5 cm./sec. Post Tibial Artery, mid = 76.4 cm./sec. Post Tibial Artery, dist. = 61.6 cm./sec. Peroneal Artery, prox = 42.0 cm./sec. Peroneal Artery, mid = 45.7 cm./sec. Peroneal Artery,dist. = 48.1 cm./sec. Ant.Tibial Artery, prox = 88.3 cm./sec. Ant Tibial Artery, mid = 52.7 cm./sec. Ant. Tibial Artery, distal = 47.8 cm./sec. Procedure The exam was diagnostic. Exam performed in department. /US Art Duplex Unilat Lower Ext Interpretation Summary Left lower extremity arteries patent with normal velocities and no evidence of stenosis. Ordering Physician: Divya Crockett Referring Physician: Tawny Hernandez Performed By: Jaspal Watson RVT
--- NOTE | 2024-06-03 08:55 | ART_ITS ---
Reason For Study: S/P LT POP A Angio Procedure A bilateral lower extremity continuous wave Doppler with analog waveform analysis and ankle brachial indexes. Left Segmental Pressures Left brachial= 144mmHg. Left posterior tibial artery = 157mmHg. Left dorsalis pedis artery = 166mmHg. Left digit = 117 mmHg. The left posterior tibial artery waveforms are triphasic. The left dorsalis pedis waveforms are triphasic. Right Segmental Pressures Right brachial= 148mmHg. Right posterior tibial artery = 153mmHg. Right dorsalis pedis artery = 145mmHg. Right digit = 76 mmHg. The right posterior tibial artery waveforms are triphasic. The right dorsalis pedis waveforms are triphasic. Indices The right ankle brachial index by the posterior tibial artery is 1.03. The right ankle brachial index by the dorsalis pedis is 0.98. The right digital-brachial index is 0.51. The left ankle brachial index by the posterior tibial artery is 1.06. The left ankle brachial index by the dorsalis pedis is 1.12. The left digital-brachial index is 0.79. VL/Ankle Brachial Index Interpretation Summary Right HARIS 1.03, normal. Doppler/PVR waveforms of the right ankle normal at rest . 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 Left HARIS 1.12, normal. TBI and Doppler/PVR waveforms of the left ankle normal a t rest. Ordering Physician: Divya Crockett Referring Physician: Tawny Hernandez Performed By: Jaspal Watson, RVT
== END | disposition home or self-care (01) ==
PROVIDERS: PCP Family Medicine; Referring Provider Physician Assistant; Visit Provider Physician Assistant
DX: Z48.812 Encounter for surgical aftercare following surgery on the circulatory system (principal); I75.022 Atheroembolism of left lower extremity; I70.212 Atherosclerosis of native arteries of extremities with intermittent claudication, left leg
CPT/HCPCS: 93922; 93926

== ENCOUNTER → 2024-10-22 | Outpatient (CLI) | payer OTHER, SELFPAY ==
--- NOTE | 2024-10-22 12:47 | ADUL_ITS ---
Reason For Study Reason For Study: HX Lt POP A Angio Left Velocities Ext Iliac Artery, dist = 140.8 cm./sec. Common Femoral Artery, mid = 113.8 cm./sec. Supf. Femoral Artery, prox = 94.8 cm./sec. Supf. Femoral Artery, mid = 114.6 cm./sec. Supf. Femoral Artery, dist = 140.3 cm./sec. Profunda Femoral Artery = 117.0 cm./sec. Popliteal Artery, mid = 50.4 cm./sec. Post. Tibial Artery, prox = 78.4 cm./sec. Post Tibial Artery, mid = 103.9 cm./sec. Post Tibial Artery, dist. = 72.9 cm./sec. Peroneal Artery, prox = 71.1 cm./sec. Peroneal Artery, mid = 56.6 cm./sec. Peroneal Artery,dist. = 42.4 cm./sec. Ant.Tibial Artery, prox = 77.2 cm./sec. Ant Tibial Artery, mid = 58.8 cm./sec. Ant. Tibial Artery, distal = 63.7 cm./sec. Procedure The exam was diagnostic. Exam performed in department. VL/US Art Duplex Unilat Lower Ext Interpretation Summary Patent left lower extremity arteries with normal velocities and waveforms, no e vidence of stenosis. Ordering Physician: Divya Crockett Referring Physician: Jessica Hernandez Performed By: Jaspal Watson, RVT
--- NOTE | 2024-10-22 12:47 | ART_ITS ---
Reason For Study Reason For Study: HX Lt POP A Angio Procedure A bilateral lower extremity continuous wave Doppler with analog waveform analysis and ankle brachial indexes. Left Segmental Pressures Left brachial= 163mmHg. Left posterior tibial artery = 178mmHg. Left dorsalis pedis artery = 171mmHg. Left digit = 110 mmHg. The left posterior tibial artery waveforms are triphasic. The left dorsalis pedis waveforms are triphasic. Right Segmental Pressures Right brachial= 154mmHg. Right posterior tibial artery = 164mmHg. Right dorsalis pedis artery = 146mmHg. Right digit = 96 mmHg. The right posterior tibial artery waveforms are triphasic. The right dorsalis pedis waveforms are triphasic. Indices The right ankle brachial index by the posterior tibial artery is 1.01. The right ankle brachial index by the dorsalis pedis is 0.90. The right digital-brachial index is 0.59. The left ankle brachial index by the posterior tibial artery is 1.09. The left ankle brachial index by the dorsalis pedis is 1.05. The left digital-brachial index is 0.67. VL/Ankle Brachial Index Interpretation Summary Right HARIS 1.01, normal. Doppler/PVR waveforms of the right ankle normal at rest . 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 Left HARIS 1.09, normal. Doppler/PVR waveforms of the left ankle normal at rest. 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 Ordering Physician: Divya Crockett Referring Physician: Jessica Hernandez Performed By: Jaspal Watson RVT
== END | disposition home or self-care (01) ==
LOC: CVS 12:43
PROVIDERS: PCP Family Medicine; Referring Provider Physician Assistant; Visit Provider Physician Assistant
DX: Z48.812 Encounter for surgical aftercare following surgery on the circulatory system (principal); I75.022 Atheroembolism of left lower extremity; I70.222 Atherosclerosis of native arteries of extremities with rest pain, left leg
CPT/HCPCS: 93922; 93926

== ENCOUNTER → 2025-04-20 | Outpatient (CLI) | payer OTHER, SELFPAY ==
--- NOTE | 2025-04-20 12:54 | ART_ITS ---
Reason For Study Reason For Study: S/P left popliteal and T/P trunk atherectomy/ angioplasty Procedure A bilateral lower extremity continuous wave Doppler with analog waveform analysis and ankle brachial indexes. Left Segmental Pressures Left brachial= 135mmHg. Left posterior tibial artery = 161mmHg. Left dorsalis pedis artery = 143mmHg. Left digit = 111 mmHg. The left dorsalis pedis waveforms are triphasic. The left posterior tibial artery waveforms are triphasic. Right Segmental Pressures Right brachial= 139mmHg. Right posterior tibial artery = 143mmHg. Right dorsalis pedis artery = 139mmHg. Right digit = 103 mmHg. The right dorsalis pedis waveforms are triphasic. The right posterior tibial artery waveforms are triphasic. Indices The right ankle brachial index by the dorsalis pedis is 1.00. The right ankle brachial index by the posterior tibial artery is 1.03. The right digital-brachial index is 0.74. The left ankle brachial index by the dorsalis pedis is 1.03. The left ankle brachial index by the posterior tibial artery is 1.16. The left digital-brachial index is 0.80. VL/Ankle Brachial Index Interpretation Summary Right HARIS 1.03, normal. Doppler/PVR waveforms of the right ankle normal at rest . 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 Left HARIS 1.16, normal. TBI and Doppler/PVR waveforms of the left ankle normal a t rest. Ordering Physician: Divya Crockett Referring Physician: Tawny Hernandez Performed By: Ne Cardoza RVT and Student
--- NOTE | 2025-04-20 12:54 | ADUL_ITS ---
Reason For Study Reason For Study: S/P left popliteal and T/P trunk atherectomy/ angioplasty Left Velocities Ext Iliac Artery, dist = 140.3 cm./sec. Common Femoral Artery, mid = 73.6 cm./sec. Supf. Femoral Artery, prox = 87.5 cm./sec. Supf. Femoral Artery, mid = 91.1 cm./sec. Supf. Femoral Artery, dist = 93 cm./sec. Profunda Femoral Artery = 86.7 cm./sec. Popliteal Artery, mid = 82.1 cm./sec. Post. Tibial Artery, prox = 61.3 cm./sec. Post Tibial Artery, mid = 74.8 cm./sec. Post Tibial Artery, dist. = 78.5 cm./sec. Peroneal Artery, prox = 36.2 cm./sec. Peroneal Artery, mid = 49 cm./sec. Peroneal Artery,dist. = 39.6 cm./sec. Ant.Tibial Artery, prox = 48.1 cm./sec. Ant Tibial Artery, mid = 34.8 cm./sec. Ant. Tibial Artery, distal = 32 cm./sec. Procedure Exam performed in department. /US Art Duplex Unilat Lower Ext Interpretation Summary Left lower extremity arteries patent with normal velocities throughout and no e vidence of stenosis. Ordering Physician: Divya Crockett Referring Physician: Tawny Hernandez Performed By: Ne Cardoza RVT and Student
== END | disposition home or self-care (01) ==
PROVIDERS: PCP Family Medicine; Referring Provider Physician Assistant; Visit Provider Physician Assistant
DX: Z48.812 Encounter for surgical aftercare following surgery on the circulatory system (principal); I70.212 Atherosclerosis of native arteries of extremities with intermittent claudication, left leg
CPT/HCPCS: 93922; 93926